=== PATIENT | female | born 2000 | race Caucasian/White ===

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

== ENCOUNTER 2024-05-10 08:31 | Emergency (ER) | payer BC ==
[~2024-05-10] VITALS: Ht 157.5 cm; Wt 49.9 kg
[2024-05-10] MEDS ORDERED: DIPH,PERTUSS(ACELL),TET VAC/PF 0.5 ML VIAL IM ONE (09:30)
[2024-05-10] MEDS: acetaMINOPHEN 500 MG TABLET PO ONE (09:31)
[2024-05-10] MEDS: LIDOCAINE HCL 1% 20 ML VIAL INJ STA (09:31)
[2024-05-10] MEDS: teTANUS/diphthERIA TOXOID [ADULT] 0.5 ML VIAL IM ONE (09:35)
[2024-05-10] MEDS ORDERED: CEPH500B PO (10:49)
[2024-05-10 10:56] VITALS: BP 120/72; PULSE 80; RESP 17; TEMP 98.6; O2SAT 99
== END 2024-05-10 10:59 | disposition home or self-care (01) ==
LOC: EEVIPCON 08:31 → EDH 08:31
DX: S01.112A Laceration without foreign body of left eyelid and periocular area, initial encounter (principal); T74.21XA Adult sexual abuse, confirmed, initial encounter; F41.9 Anxiety disorder, unspecified; Y08.89XA Assault by other specified means, initial encounter; Y93.89 Activity, other specified; Y92.89 Other specified places as the place of occurrence of the external cause; Y99.8 Other external cause status
CPT/HCPCS: 12011; 70450; 81025; 90471; 90714